=== PATIENT | female | born 1955 | race Caucasian/White ===

== ENCOUNTER 2019-04-08 09:55 | Emergency (ER) | payer OTHER, MEDICARE, SELFPAY ==
--- NOTE | ~2019-04-08 | CT_ITS ---
EXAMINATION: CT cervical spine wo con EXAM DATE: 04/08/2019 11:42 INDICATION: Fall. Cervical pain. TECHNIQUE: Spiral CT of the cervical spine was performed without contrast. Axial images were reviewe d. Coronal and sagittal reformatted images were also reviewed. The dose-length product (DLP) for thi s examination was 131.26 mGy-cm. The exposure was tailored according to patient size (auto mA exposu re control), and iterative reconstruction (ASIR) was used as additional dose reduction technique. ere is no prior study for comparison. FINDINGS: There is osseous fusion of the C4-C6 vertebral bodies. There is moderate disc disease at C3 -4, moderate to severe disc disease at C6-7. There is no evidence of acute cervical fracture. The od ontoid process is intact. Pre-dens space is normal. Prevertebral soft tissue is normal. There are no soft tissue abnormalities identified. There is no disc space widening or traumatic vertebral body subluxation suspected. There is advanced left C7-T1 facet arthropathy with 2 mm degenerative nicole listhesis C7 on T1. There is moderate to severe right neural foraminal stenosis at C3-4. Lesser spond ylosis at other levels. A detailed level by level evaluation of spondylosis can be added as addendum if requested. IMPRESSION: 1. No acute cervical fracture. Reviewed, dictated and finalized at location A. [facility]
--- NOTE | ~2019-04-08 | XR_ITS ---
EXAMINATION: XR shoulder LT min 2V DATE: 04/08/2019 11:31 INDICATION: Left shoulder injury. TECHNIQUE: 4 views of left shoulder were obtained. COMPARISON: None. FINDINGS: Bone alignment is normal. No fracture. Glenohumeral joint is normal. There is mild osteoart hritis of acromioclavicular joint. IMPRESSION: 1. Mild osteoarthritis of acromioclavicular joint. Reviewed, dictated and finalized at location A. UP ENGINEER
--- NOTE | ~2019-04-08 | XR_ITS ---
EXAMINATION: XR scapula LT EXAM DATE: 04/08/2019 12:44 INDICATION: Left scapular pain, fall. TECHNIQUE: Orthogonal projections left scapula. Correlation is made to left shoulder exam same date. FINDINGS: There are no acute left scapula fractures or dislocations identified. There is no subcutan eous gas. The soft tissue is unremarkable. There are no radiopaque foreign bodies. IMPRESSION: No acute osseous findings. Reviewed, dictated and finalized at location A. TUNNEL ENGINEER IMPRESSION: No acute osseous findings.
[2019-04-08 10:17] VITALS: BP 148/74; PULSE 90; RESP 16; TEMP 37.1; O2SAT 98
[2019-04-08 11:00] VITALS: BP 140/78; PULSE 88; RESP 18; TEMP 37; O2SAT 99
--- NOTE | 2019-04-08 11:00 | PC.NURSE ---
C-Collar applied by RN due to neck tenderness from fall. EDP notified
--- NOTE | 2019-04-08 12:20 | ED.UPPEXIN ---
HPI - Extremity Injury (Upper) General Chief Complaint: Extremity Injury, Upper Stated Complaint: left shoulder injury Time Seen by Provider: 04/08/19 10:52 Source: patient Mode of arrival: ambulatory Limitations: no limitations History of Present Illness HPI narrative: Patient presents with chief complaint of pain to the left shoulder and neck that began 4 days ago after being pushed down the steps by a dog while working. Patient states the pain continues to worsen with any range of motion. Patient denies any tingling or numbness to her upper extremities. Patient reports having fracture and surgery to her neck 4 to 5 years ago, so she was concerned she may have injured her neck again along with her shoulder. Patient denies headache, loss of consciousness, changes in vision or hearing, bleeding from her orifices, nausea, vomiting, diarrhea, chest pain, shortness of breath or any other symptoms. Patient denies any other chronic medical conditions. Related Data Allergies Allergy/AdvReac Type Severity Reaction Status Date / Time No Known Allergies Allergy Unverified 01/27/16 09:24 Review of Systems Review of Systems: Narrative: CONSTITUTIONAL: Denies fever, chills, or sweats. EYES: Denies visual changes, redness, or discharge. ENT: Denies rhinorrhea, congestion, sore throat, or otalgia. CARDIOVASCULAR: Denies chest pain, palpitations, or edema. RESPIRATORY: Denies cough or dyspnea. GASTROINTESTINAL: Denies abdominal pain, nausea, vomiting, or diarrhea. GENITOURINARY: Denies dysuria or hematuria. SKIN: Denies rash or itching. MUSCULOSKELETAL: Reports neck and left shoulder pain NEUROLOGIC: Denies headache, numbness, dizziness, or weakness. PSYCHIATRIC: Denies anxiety or depression. PMFSH Social History Social History Gender identity (if verbalized by the patient): Female Exam Narrative: Exam Narrative: GENERAL: Well-appearing, well-nourished, and in no acute distress. HEAD: Normocephalic, atraumatic. EYES: PERRLA and EOMI. ENT: Nares clear, no rhinorrhea or epistaxis. Mucous membranes moist. Oropharynx without tonsillar hypertrophy exudate or other lesions. Bilateral TMs [place] nonbulging NECK: C-collar in place. Supple. No adenopathy or masses. Diffuse tenderness to left paracervical muscles. No vertebral point tenderness palpable. No erythema or ecchymosis noted. CHEST: Clear to auscultation. No respiratory distress. No wheezes rales or rhonchi HEART: Regular rate and rhythm. No murmur heard. Normal peripheral pulses. ABDOMEN: Soft, nontender, nondistended, normal active bowel sounds. EXTREMITIES: normal range of motion-however patient reports pain to posterior left shoulder. No edema, erythema or ecchymosis. SKIN: Warm, dry, no rash. NEURO: No focal deficits. Alert and oriented x3. PSYCH: Normal mood and affect. Course Course Emergency Course: Patient now reports pain to posterior left scapula. Patient would like imaging of the area. Vital Signs Vital signs: Vital Signs Temperature 98.7 F 04/08/19 10:17 Pulse Rate 90 04/08/19 10:17 Respiratory Rate 16 04/08/19 10:17 Blood Pressure 148/74 H 04/08/19 10:17 Pulse Oximetry 98 04/08/19 10:17 Temperature 98.6 F 04/08/19 11:00 Pulse Rate 88 04/08/19 11:00 Respiratory Rate 18 04/08/19 11:00 Blood Pressure 140/78 04/08/19 11:00 Pulse Oximetry 99 04/08/19 11:00 MDM - Extremity Injury (Upper) MDM Narrative Medical decision making narrative: Discussed with patient there are no signs of any fractures. Patient will be given naproxen and tizanidine for pain and muscle spasming. Patient given a work note to limit activity and follow-up with primary care for further evaluation of tendons and ligaments. Discussed with patient that she may need a MRI for further evaluation of tendons and ligaments. Informed her that we do not provide MRIs in emergency department. Patient verbalized understanding agreement with plan. Patient denies
[2019-04-08 13:30] VITALS: PULSE 80; RESP 16; O2SAT 97
== END 2019-04-08 13:31 | disposition home or self-care (01) ==
PROVIDERS: Emergency Provider Emergency Medicine
DX: S46.912A Strain of unspecified muscle, fascia and tendon at shoulder and upper arm level, left arm, initial encounter (principal); S16.1XXA Strain of muscle, fascia and tendon at neck level, initial encounter; M19.012 Primary osteoarthritis, left shoulder; W54.1XXA Struck by dog, initial encounter; W10.9XXA Fall (on) (from) unspecified stairs and steps, initial encounter
CPT/HCPCS: 72125; 73010; 73030; 99284; L0140

== ENCOUNTER 2020-09-06 09:39 | Outpatient (CLI) | payer OTHER, MEDICARE, SELFPAY ==
--- NOTE | 2020-09-06 | ECG_ITS ---
Measurements Intervals [place] Rate: 67 P: 38 WV: 146 QRS: 63 QRSD: 86 T: 45 QT: 369 QTc: 390 Interpretive Statements SINUS RHYTHM WITH MARKED SINUS ARRHYTHMIA BASELINE ARTIFACT- II, III, AVF, V4-V5 NORMAL ECG Electronically Signed On 09-06-2020 11:56:08 CDT by Babatunde Ndiaye D.O.
[2020-09-06 10:27] LABS: Basophils Percent Auto 0.7 % (0.2-1.2); Eosinophils Absolute Auto 0.2 K/mm3 (0-0.3); Eosinophils Percent Auto 3.3 % (0-4.4); Hematocrit 40.6 % (37.0-47.0); Hemoglobin 13.1 g/dL (12.0-15.0); Immature Granulocyte Absolute 0.01 K/mm3 (0.00-0.031); Immature Granulocyte Percent A 0.2 % (0-0.5); Lymphocytes Absolute Auto 2.05 K/mm3 (0.9-3.2); Lymphocytes Percent Auto 35.3 % (18.3-44.2); Mean Corpuscular HGB Conc 32.3 g/dl (32-36); Mean Platelet Volume 9.6 fl (7.4-10.4); Monocytes Absolute Auto 0.7 K/mm3 (0.1-0.6); Monocytes Percent Auto 11.5 % (2.6-8.5); Neutrophils Absolute Auto 2.9 K/mm3 (1.3-6.7); Platelet Count Result 225 k/mm3 (150-375); Red Blood Count 4.51 M/mm3 (4.2-5.4); White Blood Count 5.8 K/mm3 (4.5-10.0)
[2020-09-06 10:35] LABS: Add Urine Microscopic? YES; Appearance Urine Cloudy (Clear); Bacteria Urine Trace /hpf; Bilirubin Urine Negative (Negative); Blood Urine Negative (Negative); Calcium Oxalate Crystals Urine Many /hpf; Color Urine Yellow (Yellow); Glucose Urine UA Negative (Negative); Ketones Urine Negative (Negative); Leukocyte Esterase Ur 2+ LEU/UL (NEGATIVE); Mucus Urine Rare /lpf; Nitrate Urine Negative (Negative); Protein Urine Negative (Negative); Squamous Epithelial Cell Urine Rare /hpf (Few); Urobilinogen Urine Negative mg/dL (<2.0); WBC Urine 31-50 /hpf (0-3)
[2020-09-06 10:40] LABS: Alanine Aminotransferase 20 U/L (4-35); Albumin Level 4.6 g/dL (3.5-5.1); Alkaline Phosphatase 91 U/L (38-126); Anion Gap 9 mmol/L (8-16); Aspartate Amino Transferase 31 U/L (14-36); Bilirubin,Total 0.3 mg/dL (0.2-1.3); Blood Urea Nitrogen 21 mg/dL (7-17); Calcium 10.2 mg/dL (8.4-10.2); Carbon Dioxide 27 mmol/L (22-30); Chloride 103 mmol/L (98-107); Estimated Glomerular Filt Rate > 60; Glucose 91 mg/dL (65-105); Potassium 4.2 mmol/L (3.4-5.0); Sodium 139 mmol/L (137-145)
[2020-09-06 11:19] LABS: HIV 1/2 Ab P24 Ag Result Negative (Negative)
[2020-09-06 11:32] LABS: Erythrocyte Sedimentation Rate 36 mm/hr (0-20)
[2020-09-06 12:00] LABS: Hepatitis B Surface Antigen Negative (Negative)
[2020-09-06 12:05] LABS: HAV RESULT Negative (Negative); Hepatitis B Core IgM Result Negative (Negative)
[2020-09-06 12:17] LABS: Hepatitis C Virus Antibody Reactive (Negative)
[2020-09-06 13:40] LABS: Vitamin D 25 Hydroxy 63.6 ng/mL
== END 2020-09-06 09:40 | disposition home or self-care (01) ==
LOC: ANHLAB 09:48
PROVIDERS: Visit Provider Family Medicine Sports Medicine
DX: Z01.818 Encounter for other preprocedural examination (principal); I49.9 Cardiac arrhythmia, unspecified
CPT/HCPCS: 36415; 80053; 80074; 81001; 82306; 85025; 85610; 85652; 85730; 86703; 87522; 93005; G0432